=== PATIENT | female | born 1940 | race Caucasian/White ===

== ENCOUNTER → 2016-06-06 | Day surgery (SDC) | payer MEDICARE, OTHER ==
[~2016-06-06] MED LIST: ACETAMINOPHEN PO; ALBUTEROL17 GM INH; ANEXSIA 5/325 M1 TA1 PO; CLARITIN10 M2 PO; HYDROCODON-ACE1 EAC5 PO; HYDROMET SYRUP480 ML PO; IBUPROFEN200 M1 PO; LIPITOR40 MG PO; PREDNISONE PO; REQUIP0.25 MG PO; REQUIP1 MG PO; ST. JOSEPH ASPI81 M3 PO; VIRTUSSIN AC L473 ML PO; VITAMIN D1000 UNI2 PO; VITAMIN D1000 UNIT PO; ZITHROMAX PO; ZYRTEC10 M1 PO
--- NOTE | ~2016-06-06 | OR ---
Unit #: [id number] #: [id number] Patient: IVONEN ARMANDO [id number] [address] [place], [place] [address] [id number] O MR#: [id number] NAME: IVONNE ARMANDO ROOM: Date of Procedure: 06/06/2016 Admission Date: 06/06/2016 Surgeon: Fercho Viera M.D. : 1940 Attending Physician: Fercho Viera M.D. Primary Care Physician: Lily Novak M.D. [facility]ENTER OPERATIVE NOTE PROCEDURE PERFORMED Cervical epidural steroid injection under x-ray guided needle placement. PREOPERATIVE DIAGNOSES 1. Acute cervical radiculitis. 2. Cervical spinal stenosis. 3. Degenerative joint disease, cervical spine. 4. Degenerative disk disease, cervical spine. 5. Degenerative facet arthrosis, cervical spine C3-C4, C4-C5, and C5-C6. INDICATIONS FOR PROCEDURE The patient presents today status post 2 previous cervical approach epidural steroid injections approximately 3 months ago, which provided approximately 60% to 80% relief for 6 to 8 weeks. She presents today with recurrence of her symptoms which are advancing in a crescendo pattern. After discussing risks and benefits of proceeding today with a cervical approach epidural steroid injection as well as referral to Dr. Demar Jorge for potential cervical facet injections, the patient agreed this would be the appropriate course of action. DESCRIPTION OF PROCEDURE She was then taken to the operating room, where she was prepped and draped in a sterile manner. Standard monitors were applied. She refused all forms of sedation and cervical epidural space was accessed at the C5-C6 level using loss of resistance technique and x-ray guidance. Needle placement was confirmed with injection of 2 mL of Omnipaque. There was good superior and inferior flow at the C5-C6 level. Following successful needle placement confirmation, the patient received an injectate containing 4 mL normal saline and 80 mg of methylprednisolone. She tolerated this procedure well. She was discharged home with followup instructions, which include an offer to return to this clinic as early as 09/05/2016 if we could be of further service to her. She was instructed if she was asymptomatic at that time to simply not keep that appointment and to follow up at such point in future, so we could be of further service to her. She was further instructed if the shots were not benefit to her to return to her referring provider for additional referral for more aggressive treatment. Total x-ray time today was 3 seconds. Dictated by... Linette Rubio/gi Unit #: [id number] #: [id number] Patient: IVONNE ARMANDO TD: 06/07/2016 01:31 JOB #: [id number] CC: Juanito Hummel M.D. SUR[facility] CENTER OPERATIVE NOTE Page 1 of 1 X Getachew Viera MD X PROCEDURE OPERATIVE NOTE
== END | disposition home or self-care (01) ==
LOC: CCSC 08:15
DX: M47.22 Other spondylosis with radiculopathy, cervical region (principal); M50.10 Cervical disc disorder with radiculopathy, unspecified cervical region; Z96.651 Presence of right artificial knee joint
CPT/HCPCS: J1040; J2250

== ENCOUNTER → 2016-07-19 | Day surgery (SDC) | payer MEDICARE, OTHER ==
--- NOTE | ~2016-07-19 | OR ---
Unit #: [id number] #: [id number] Patient: IVONNE ARMANDO [id number] [place], [place] [address] [id number] O MR#: [id number] NAME: IVONNE ARMANDO ROOM: Date of Procedure: 07/19/2016 Admission Date: 07/19/2016 Surgeon: Demar Jorge M.D. : 1940 Attending Physician: Demar Jorge M.D. Primary Care Physician: Lily Novak M.D. OPERATIVE REPORT PREOPERATIVE DIAGNOSES Neck pain, cervical facet disease, degenerative cervical disk disease. POSTOPERATIVE DIAGNOSES Neck pain, cervical facet disease, degenerative cervical disk disease. PROCEDURE PERFORMED Cervical facet injection x2 levels with intravenous sedation and fluoroscopic guidance for needle localization. INDICATIONS FOR PROCEDURE The patient is a 76-year-old female with multilevel degenerative disk and facet disease causing neck and right upper extremity radicular type pain. She has been treated with epidural steroids that helped her right upper extremity radicular pain and suffered from neck pain. She continues to have pain in her neck lateralized worse to the right that radiates to the right periscapular region. On physical examination, this pain is consistent with facet etiology. Her plan is for trial of diagnostic and hopefully therapeutic cervical facet injections. She had significant arthropathy from C3 through C7. We will address the C5-C6 and C6-C7 levels which appeared to be a most symptomatic. This does not settle things enough, we might not get trialing diagnostic and therapeutic injections at C3-C4 and C4-C5. This has been discussed with the patient. DESCRIPTION OF PROCEDURE The patient was placed in a seated position. Standard monitors were applied. Sterile prep and drape of the right periscapular region and neck were performed. Fluoroscopy was used to identify the location of the C5-C6 and C6-C7 facet joints. The skin lateral to this was localized with 1% lidocaine. A 22-gauge Quincke point needle was then advanced with fluoroscopic guidance to bring the needle tip to within the edge of those respective facet joints. After confirming proper positioning with fluoroscopy, a dose of 1 mL of a mixture of 80 mg of Depo-Medrol, 1 mL of 0.25% bupivacaine was used, 0.5 mL deposited within the joint and 0.5 mL just outside the joint. The patient tolerated the procedure otherwise well. The needles were flushed and removed. She was discharged to the recovery room in stable condition. Dictated by... Demar Jorge M.D. Unit #: [id number] #: [id number] Patient: IVONNE ARMANDO LHP/modl TD: 07/19/2016 22:44 JOB #: [id number] CC: Fercho Viera M.D. OPERATIVE REPORT Page 1 of 1 X Demar Jorge MD X PROCEDURE OPERATIVE NOTE
== END | disposition home or self-care (01) ==
LOC: CCSC 08:46
DX: M47.22 Other spondylosis with radiculopathy, cervical region (principal); M50.10 Cervical disc disorder with radiculopathy, unspecified cervical region; M53.82 Other specified dorsopathies, cervical region
CPT/HCPCS: J1040; J2250

== ENCOUNTER → 2016-12-01 | Outpatient (CLI) | payer MEDICARE, OTHER ==
--- NOTE | ~2016-12-01 | CT134 ---
[facility] A Service of [facility] & [facility] RADIOLOGY TEXT RESULTS PATIENT: IVONNE ARMANDO [facility] [birth year] UNIT #: [id number] AGE: [address]: Juanito Hummel MD SEX: F ORDER DR: [id number] [facility] [address] [place], [place] [address] [id number] O MR#: [id number] Acc #: [id number] NAME: IVONNE ARMANDO : 1940 SEX: F STUDY DATE/TIME: 12/01/2016 12:12 UNIT: [facility] ROOM: STUDY DESCRIPTION: CT Guide Attending Physician: Juanito Hummel M.D. Ordering Physician: Juanito Hummel M.D. Primary Care Physician: Lily Novak M.D. MEDICAL IMAGING REPORT This report is preliminary unless electronic signature is present EXAM CT guided left sacroiliac joint injection, 12/01/2016 HISTORY SI joint pain. Preprocedure pain level 7/10. PROCEDURE Using CT guidance a skin site was selected and marked, sterilely prepped and draped and locally anesthetized, a 22-gauge spinal needle was advanced into the left sacroiliac joint. This was followed by injection of 40 mg of Depo-Medrol and about 2 mL of Marcaine. The patient reported Postprocedure pain level 0/10. IMPRESSION Technically successful CT guided left sacroiliac joint injection with Depo-Medrol and Marcaine. Preprocedure pain level 7/10. Postprocedure pain level 0/10. Dictated by... Dilip Rose M.D. THIS IS AN ELECTRONICALLY VERIFIED REPORT Dilip Rose M.D. at 12/02/2016 3:58 PM SONDRA/chencho TD: 12/02/2016 10:26 JOB #: [id number] MEDICAL IMAGING REPORT Page 1 of 1 COPY
== END | disposition home or self-care (01) ==
LOC: CIVR 11:51
DX: M53.3 Sacrococcygeal disorders, not elsewhere classified (principal)
CPT/HCPCS: G0260; 77012; J1030